=== PATIENT | male | born 1970 | race Caucasian/White ===

== ENCOUNTER → 2019-10-11 | Outpatient (CLI) | payer MEDICARE, OTHER ==
[~2019-10-11] MED LIST: GADOTERATE 10 MMOL/20 ML SYR ONE; GADOTERATE 7.5 MMOL/15 ML SYR ONE
== END | disposition home or self-care (01) ==
LOC: RAD 07:07
PROVIDERS: ATTEND Specialist
DX: M47.812 Spondylosis without myelopathy or radiculopathy, cervical region (principal); M51.24 Other intervertebral disc displacement, thoracic region; G35 Multiple sclerosis; G82.20 Paraplegia, unspecified
CPT/HCPCS: 72156; 72157; A9575